=== PATIENT | female | born 1965 | race Caucasian/White ===

== ENCOUNTER 2023-05-23 08:57 | Observation (INO) | payer OTHER, SELFPAY ==
[2023-05-23] VITALS (10 sets, daily range): BP systolic 111–160; BP diastolic 75–97; PULSE 65–83; RESP 13–19; TEMP 36.6–37.1; O2SAT 95–100
--- NOTE | ~2023-05-23 | XR_ITS ---
EXAMINATION: XR chest 1V portable DATE: 05/23/2023 09:55 INDICATION: Left-sided numbness and weakness. TECHNIQUE: A single frontal view of the chest was obtained. COMPARISON: None. FINDINGS: There is no pneumonia, pleural effusion, or pneumothorax. The heart size is normal. IMPRESSION: 1. No acute cardiopulmonary disease. Reviewed, dictated and finalized at location A. RIDGE FEEDER
--- NOTE | ~2023-05-23 | CT_ITS ---
EXAMINATION: CTA brain carotid DATE: 05/23/2023 10:27 INDICATION: Left-sided numbness. TECHNIQUE: Computed tomographic angiography (CTA) of the head was performed without and with 100 mL O mnipaque-350 intravenous contrast. CTA of the neck was performed with intravenous contrast. Automated exposure control and iterative reconstruction technique were employed. The dose-length product was 1 756.83 mGy-cm. Maximum intensity projection and volume rendered 3D-reconstructions were created by henry williamson technologist on a separate workstation. COMPARISON: None. FINDINGS: HEAD CTA: There are scattered areas of low attenuation in the cerebral white matter. There is cystic encephalomalacia in the right temporal parietal deep white matter. There is an old lacunar infarct in the danielle. There is an infarct in the right thalamus. There is no intracranial hemorrhage or abnormal intracranial mass lesion. The ventricles are normal in size. There is mild mucosal thickening in the paranasal sinuses. The orbits are normal. The mastoid air cells are normal. There is extensive denta l disease. The vertebral arteries are codominant. There is no significant stenosis of basilar artery or the posterior cerebral arteries. The posterior communicating arteries are normal. There is no sign ificant stenosis of the intracranial internal carotid arteries or anterior or middle cerebral arterie s. Anterior communicating artery is normal. There is no aneurysm. NECK CTA: There are no pathologically enlarged lymph nodes. There is no significant stenosis of the v ertebral arteries. There is plaque in the proximal internal carotid arteries. There is 48% stenosis o f the proximal right internal carotid artery relative to normal distal artery lumen diameter (NASCET criteria). There is 51% stenosis of the proximal left internal carotid artery relative to normal dist al artery lumen diameter. There is mild cervical spondylosis. IMPRESSION: 1. Age-indeterminate infarct in the right thalamus. 2. Old infarcts in the danielle and right temporal parietal deep white matter. 3. Mild nonspecific cerebral white matter disease, which likely represents chronic small vessel ische julian disease. 4. No aneurysm or significant intracranial arterial stenosis. 5. 48% stenosis of the proximal right internal carotid artery relative to normal distal artery lumen diameter (NASCET criteria). 6. 51% stenosis of the proximal left internal carotid artery relative to normal distal artery lumen d iameter. Reviewed, dictated and finalized at location A. RONMENTAL MARKETER IMPRESSION: 1. Age-indeterminate infarct in the right thalamus. 2. Old infarcts in the danielle and right temporal parietal deep white matter. 3. 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 4. No aneurysm or significant intracranial arterial stenosis. 5. 48% stenosis of the proximal right internal carotid artery relative to lowell l distal artery lumen diameter (NASCET criteria). 6. 51% stenosis of the proximal left internal carotid artery relative to normal distal artery lumen diameter.
--- NOTE | ~2023-05-23 | MR_ITS ---
EXAMINATION: MR brain/brain stem wo/w con DATE: 05/24/2023 12:25 INDICATION: Left-sided numbness. TECHNIQUE: Magnetic resonance imaging (MRI) of the brain and brainstem was performed without and with 12 mL MultiHance intravenous contrast. COMPARISON: Head CT 05/23/2023 FINDINGS: There is an acute infarct in the danielle on the right. There is an old infarct in the danielle. Th ere is old infarct in right thalamus. There is an old infarct in the right temporal parietal deep whi te matter. There is an old infarct in right cerebellum. There are scattered areas of nonspecific incr eased T2-weighted signal intensity in the cerebral white matter. There is no intracranial hemorrhage or abnormal mass lesion. The ventricles are normal in size. The orbits are normal. There is mild muco lior thickening in the paranasal sinuses. The mastoid air cells are normal. IMPRESSION: 1. Acute infarct in the danielle 2. Old infarcts in the danielle, right thalamus, right temporal parietal deep white matter, and right cer ebellum. 3. Mild nonspecific cerebral white matter disease, which likely represents chronic small vessel ische julian disease. Reviewed, dictated and finalized at location A. AND SPIRITS CLERK IMPRESSION: 1. Acute infarct in the danielle 2. Old infarcts in the danielle, right thalamus, right temporal parietal deep white matter, and right cerebellum. 3. Mild nonspecific cerebral white matter disease, which likely represents mesh cutter che small vessel ischemic disease.
--- NOTE | 2023-05-23 09:09 | ECG_ITS ---
Measurements Intervals [place] Rate: 78 P: 77 NC: 188 QRS: 60 QRSD: 154 T: -8 QT: 431 QTc: 492 Interpretive Statements SINUS RHYTHM RIGHT BUNDLE BRANCH BLOCK BASELINE ARTIFACT- III, AVL, AVF, V3-V6 ABNORMAL ECG NO PREVIOUS ECG AVAILABLE FOR COMPARISON Electronically Signed On 05-23-2023 9:22:49 SOCIAL SCIENTIST by Nic Melendez D.O.
[2023-05-23 09:28] LABS: Basophils Absolute Auto 0.1 K/mm3 (0.0-0.1); Eosinophils Absolute Auto 0.2 K/mm3 (0-0.3); Hematocrit 43.4 % (37.0-47.0); Hemoglobin 14.3 g/dL (12.0-15.0); Immature Granulocyte Absolute 0.02 K/mm3 (0.00-0.031); Immature Granulocyte Percent A 0.3 % (0-0.5); Lymphocytes Percent Auto 32.8 % (18.3-44.2); Mean Corpuscular HGB Conc 32.9 g/dl (32-36); Mean Corpuscular Hemoglobin 35.2 pg (26-34); Mean Corpuscular Volume 106.9 fl (80-100); Mean Platelet Volume 10.2 fl (7.4-10.4); Monocytes Absolute Auto 0.4 K/mm3 (0.1-0.6); Monocytes Percent Auto 6.1 % (2.6-8.5); Neutrophils Absolute Auto 3.5 K/mm3 (1.3-6.7); Neutrophils Percent Auto 56.8 % (45.5-73.1); Platelet Count Result 108 k/mm3 (150-375); Red Blood Count 4.06 M/mm3 (4.2-5.4); Red Cell Distribution Width 13.1 % (11.5-14.5); White Blood Count 6.1 K/mm3 (4.5-10.0)
[2023-05-23 09:41] LABS: Alanine Aminotransferase 61 U/L (6-35); Albumin Level 4.2 g/dL (3.5-5.1); Alkaline Phosphatase 90 U/L (38-126); Anion Gap 8 mmol/L (8-16); Aspartate Amino Transferase 92 U/L (14-36); Bilirubin,Total 1.1 mg/dL (0.2-1.3); Blood Urea Nitrogen 17 mg/dL (7-17); Calcium 9.2 mg/dL (8.4-10.2); Carbon Dioxide 26 mmol/L (22-30); Chloride 103 mmol/L (98-107); Estimated CRCL calculation 52 ml/min; Estimated Glomerular Filt Rate > 60; Glucose 182 mg/dL (65-110); Potassium 3.9 mmol/L (3.4-5.0); Sodium 137 mmol/L (137-145)
[2023-05-23 09:42] LABS: Partial Thromboplastin Time 24.4 SECONDS (22.3-36.8); Prothrombin Time 13.3 Seconds (11.1-14.7)
[2023-05-23 09:49] LABS: Troponin I < 0.012 ng/mL (0.000-0.034)
--- NOTE | 2023-05-23 10:36 | ED.GENADULT ---
HPI - General Adult General Chief complaint: Neuro Symptoms/Deficit Stated complaint: numb on left side x 2 days Time Seen by Provider: 05/23/23 09:18 History of Present Illness HPI narrative: Patient is a 58-year-old female who presents ER with numbness left side of her body. She reports that involves her face, her left arm, and her left leg. It does not involve the trunk. No focal weakness. No slurred speech. No previous history of similar symptoms. She reports she did have a fall 2 days prior where she hurt her low back but denies any injury to her neck or head. No neck stiffness at this time. No alleviating factors. Patient has cardiac history and is on Plavix. Related Data Home Medications Medication Instructions Recorded Confirmed albuterol sulfate 90 mcg/actuation 90 mcg inhalation PRN PRN asthma 05/23/23 05/23/23 aerosol inhaler amlodipine 5 mg tablet (Norvasc) 5 mg PO DAILY 05/23/23 05/23/23 atorvastatin 40 mg tablet 40 mg PO DAILY 05/23/23 05/23/23 citalopram 20 mg tablet 20 mg PO DAILY 05/23/23 05/23/23 clopidogrel 75 mg tablet 75 mg PO DAILY 05/23/23 05/23/23 gabapentin 300 mg capsule 900 mg PO BID 05/23/23 05/23/23 glipizide 10 mg tablet 10 mg PO BID 05/23/23 05/23/23 meloxicam 7.5 mg tablet 7.5 mg PO DAILY 05/23/23 05/23/23 metoprolol succinate 50 mg 50 mg PO DAILY 05/23/23 05/23/23 tablet,extended release 24 hr Allergies Allergy/AdvReac Type Severity Reaction Status Date / Time Sulfa (Sulfonamide Allergy Rash Verified 05/23/23 09:16 Antibiotics) Review of Systems Review of Systems: All systems reviewed & are unremarkable except as noted in HPI and below Constitutional: Constitutional: Denies chills, Denies fatigue and Denies fever(s) ENT: Reports system reviewed and no additional complaints, except as documented Cardiovascular: Cardiovascular: Reports no additional cardiovascular complaints Respiratory: Respiratory: Reports no additional respiratory complaints Musculoskeletal: Musculoskeletal: Reports no additional musculoskeletal complaints Neurologic: Denies syncope, Denies headache(s), Denies focal weakness and Reports numbness PMF Past Medical History Medical History (Updated 05/23/23 @ 18:14 by Brian Shafer MD) COPD (chronic obstructive pulmonary disease) Coronary artery disease Diabetes Hyperlipidemia Hypertension Neuropathy Surgical History Surgical History (Updated 05/23/23 @ 10:39 by Brian Shafer MD) History of percutaneous coronary intervention Family History Family History (Updated 05/23/23 @ 15:23 by Reina Campbell PA-C) Mother Acute myocardial infarction Social History Social History Smoking packs per day: 1.5 Smoking cigarettes per day: 30.0 Years smoked: 50 Smoking pack-years: 75.00 Smoking status: Current every day smoker Tobacco type: cigarettes Second hand tobacco smoke exposure: Yes Alcohol intake: current Drinks per week: 10 Substance use: former Last use: 1999 Lack of Transportation: No Lack of Food: Never True Current Housing: I Have Housing Concerned About Future Housing: No Difficulty Paying Gas/Electric Bills: YES Difficulty Paying for Meds: No Currently Unemployed: No Education: High School Diploma/GED Difficulty w/ Childcare or Family Care: No Spiritual care concerns: No Exam Narrative: GENERAL: Well-appearing, well-nourished, and in no acute distress. HEAD: Normocephalic, atraumatic. EYES: PERRL and EOMI. ENT: Mucous membranes moist. CHEST: Clear to auscultation. No respiratory distress. HEART: Regular rate and rhythm. Normal peripheral pulses. ABDOMEN: Soft, nontender, nondistended. EXTREMITIES: Normal range of motion. No edema. SKIN: Warm, dry, no rash. NEURO: Decreased sharp touch most notably in the left upper extremity however there is slight variation in left face. No difference in the lower
--- NOTE | 2023-05-23 13:45 | PM.IMHP ---
H&P: HPI History of Present Illness Date/Time: 05/23/23 13:45 Chief Complaint: Left-sided numbness Narrative: Patient is a 58-year-old female who presented emergency room for left facial, arm and leg numbness that started 2 days ago. She states this numbness is more abnormal sensation that she notices with touch and hot and cold. This has never happened to her before and she has no pain. She denies vision loss, speech abnormalities, weakness, chest pain or shortness of breath. She has a little bit of dizziness and she has noticed that she is dropping things from her left hand. She denies any significant headaches. She does have a history of neuropathy in both her hands and feet. She has a history of an [place] at 48 with cardiac stents but no other history of stroke that she knows of. She says she no longer has diabetes and she is off her medications. She admits to drinking 2 barbara bombs a day but denies drug use Review of Systems Review of Systems: All systems reviewed & are unremarkable except as noted in HPI and below PMFSH Past Medical History Medical History (Updated 05/23/23 @ 15:28 by Reina Campbell PA-C) COPD (chronic obstructive pulmonary disease) Coronary artery disease Diabetes Hyperlipidemia Hypertension Neuropathy Surgical History Surgical History (Updated 05/23/23 @ 10:39 by Brian Shafer MD) History of percutaneous coronary intervention Family History Family History (Updated 05/23/23 @ 15:23 by Reina Campbell PA-C) Mother Acute myocardial infarction Comments Social history-she drinks 2 shots a day, smokes 1.5 packs per day, no drugs. Lives at home alone Meds Home Medications and Allergies Allergies Allergy/AdvReac Type Severity Reaction Status Date / Time Sulfa (Sulfonamide Allergy Rash Verified 05/23/23 09:16 Antibiotics) Vital Signs Vital Signs - 24 hr 05/23/23 09:10 05/23/23 09:14 05/23/23 09:14 Temperature 97.8 F Pulse Rate 76 76 75 Respiratory Rate 18 14 Blood Pressure 155/97 H 155/97 H Pulse Oximetry 99 99 Oxygen Delivery Room Air 05/23/23 10:32 05/23/23 11:22 05/23/23 12:47 Temperature Pulse Rate 74 73 79 Respiratory Rate 13 18 19 Blood Pressure 154/82 H 125/79 111/82 Pulse Oximetry 96 99 96 Oxygen Delivery Exam Narrative: General:Well developed well nourished patient HEENT: Normocephalic, atraumatic, PERRL, Sclerae anicteric, oral mucosa moist. Neck: Supple Resp: Decreased breath sounds throughout with slight expiratory wheezing bilateral Heart: RRR with no murmurs Abd: Soft, nontender. No pain to palpation. Positive bowel sounds Skin: Warm and dry Extremities: No swelling, erythema or pain to palpation Neuro: Alert and Oriented x4 . CN 2-12 intact. She endorses abnormal sensation of L arm, face and leg but on sharp and dull, she has abnormalities bilaterally. no abnormal speech H&P: Results Labs Labs: Short CBC 05/23/23 Range/Units 09:24 WBC 6.1 (4.5-10.0) K/mm3 Hgb 14.3 (12.0-15.0) g/dL Hct 43.4 (37.0-47.0) % Plt Count 108 L (150-375) k/mm3 BMP 05/23/23 09:24 Sodium 137 Potassium 3.9 Chloride 103 Carbon Dioxide 26 BUN 17 Creatinine 0.80 Glucose 182 H Calcium 9.2 Cardiac Enzymes 05/23/23 Range/Units 09:24 Troponin I < 0.012 (0.000-0.034) ng/mL Liver Function 05/23/23 Range/Units 09:24 Total Bilirubin 1.1 (0.2-1.3) mg/dL AST 92 H (14-36) U/L ALT 61 H (6-35) U/L Alkaline Phosphatase 90 (38-126) U/L Albumin 4.2 (3.5-5.1) g/dL Assessment and Plan Assessment and plan (1) Abnormal sensation of upper extremity: Code(s): R20.9 - Unspecified disturbances of skin sensation Status: Acute Assessment and Plan: CT with R thalamic abnormality which is age indeterminate which matches her symptomatology -outside window for tPA, no EMT needed as no LVO on CTA -Obtain MRI brain -CTA without significant stenos
[2023-05-23] MEDS: NICOTINE (*PBKC) 14 MG PATCH 1 PATCH TRANSDERM (14:00)
--- NOTE | 2023-05-23 15:28 | ADMGEN ---
This patient, Yen Ruvalcaba, was admitted to [facility] Surg Room 321-01. Patient/family oriented to hospital policies and general routines including ID bracelet, bed and alarms, visiting hours, pain management, procedures, bathroom and other care routines, personal items, smoking policy, room service/diet, and visiting hours. Information on how to activate the Rapid Response Team has been discussed. Patient/Family are encouraged to report perceived risks to care and to ask questions if they do not understand what they are told or what they should do.
[2023-05-23] MEDS: GABAPENTIN 300 MG CAPSULE PO (18:03)
[2023-05-23 18:44] LABS: Amphetamine Screen Urine Negative (Negative); Barbiturate Screen Urine Negative (Negative); Benzodiazepines Screen Urine Negative (Negative); Cannabinoid Screen Urine Negative (Negative); Cocaine Screen Urine Negative (Negative); Methadone Screen Urine Negative (Negative); Opiate Screen Urine Negative (Negative); Phencyclidine Screen Urine Negative (Negative)
[2023-05-24] VITALS (9 sets, daily range): BP systolic 139–160; BP diastolic 77–97; PULSE 62–79; RESP 14–18; TEMP 36.3–36.9; O2SAT 90–97
--- NOTE | 2023-05-24 07:41 | PM.IMPN ---
Progress Note: A&P Assessment and Plan (1) Abnormal sensation of upper extremity: Code(s): R20.9 - Unspecified disturbances of skin sensation Status: Acute Assessment and Plan: CT with R thalamic abnormality which is age indeterminate which matches her symptomatology -outside window for tPA, no EMT needed as no LVO on CTA -Obtain MRI brain -CTA without significant stenosis of the carotid arteries -Will order echo with bubble, lipid panel, A1c -Triglycerides are high. Add Fish oil daily for moderate hypertriglyceridemia. -Neurology consult -tele -needs to quit smoking -pt on aspirin 81mg and statin therapy at home-continue with that regimen (will await home medications to be verified) 05/24: MRI shows acute infarct in the danielle and old infarct in the right thalamus, right temporal parietal deep white matter, and right cerebellum. There is also nonspecific cerebral white matter disease which likely represents chronic small vessel ischemic disease. Neurology recommends continue with ASA and plavix for the next 6 weeks as well as continue atorvastatin 40 mg daily. She will need to follow with a neurologist for the next 6 months. She also needs close follow up with her PCP for blood pressure control and monitoring of lipids. (2) Stroke-like symptoms: Code(s): R29.90 - Unspecified symptoms and signs involving the nervous system Status: Acute Assessment and Plan: As above (3) History of CVA (cerebrovascular accident): Code(s): Z86.73 - Personal history of transient ischemic attack (TIA), and cerebral infarction without residual deficits Status: Acute Assessment and Plan: old infarcts in the danielle and right temporal -recommend outpt cardiac tech due to locations as cardioembolic source is suspected -CT also shows white matter disease--will work on SV risk factors such as HTN, DM, lipids etc (4) Elevated LFTs: Code(s): R79.89 - Other specified abnormal findings of blood chemistry Status: Acute Assessment and Plan: Noted on labs -check hepatitis panel in the AM -Likely due to ETOH use -Monitor (5) Abnormal glucose: Code(s): R73.09 - Other abnormal glucose Status: Acute Assessment and Plan: Check A1c in the AM as pt has a hx of DM but is no longer on medication 05/24: A1c 6.7%. Recommend diet and lifestyle changes. (6) Neuropathy: Code(s): G62.9 - Polyneuropathy, unspecified Status: Acute Assessment and Plan: Pt takes gabapentin for this -Will continue when home medications are verified (7) COPD (chronic obstructive pulmonary disease): Code(s): J44.9 - Chronic obstructive pulmonary disease, unspecified Status: Acute Assessment and Plan: Decreased breath sounds -no signs of exacerbation -f/u outpt and quit smoking (8) Alcohol use: Code(s): Z78.9 - Other specified health status Status: Acute Assessment and Plan: Takes 2 shots of day -No signs of withdraw -CIWA (9) HTN (hypertension), benign: Code(s): I10 - Essential (primary) hypertension Status: Acute Assessment and Plan: last bp 130/83 -will allow permissive htn at this time Plan dvt ppx-scd until MRI is back Subjective Date/time seen: 05/24/23 07:41 Interval history: Patient is a 58-year-old female who presented emergency room for left facial, arm and leg numbness that started 2 days ago.? She states this numbness is more abnormal sensation that she notices with touch and hot and cold.? This has never happened to her before and she has no pain.? She denies vision loss, speech abnormalities, weakness, chest pain or shortness of breath.? She has a little bit of dizziness and she has noticed that she is dropping things from her left hand.? She denies any significant headaches.? She does have a history of neuropathy in both her hands and feet.? She
[2023-05-24 08:22] LABS: Hemoglobin A1C 6.7 % (<5.7)
[2023-05-24 08:23] LABS: Alanine Aminotransferase 59 U/L (6-35); Albumin Level 3.9 g/dL (3.5-5.1); Alkaline Phosphatase 89 U/L (38-126); Anion Gap 9 mmol/L (8-16); Aspartate Amino Transferase 80 U/L (14-36); Bilirubin,Total 0.9 mg/dL (0.2-1.3); Blood Urea Nitrogen 12 mg/dL (7-17); Carbon Dioxide 25 mmol/L (22-30); Chloride 105 mmol/L (98-107); Cholesterol 134 mg/dL (0-200); Estimated CRCL calculation 68 ml/min; Estimated Glomerular Filt Rate > 60; Glucose 182 mg/dL (65-110); HDL Direct 55 mg/dL; Potassium 3.2 mmol/L (3.4-5.0); Sodium 139 mmol/L (137-145); Triglycerides 228 mg/dL (<150)
[2023-05-24 08:34] LABS: LDL Cholesterol Direct 54 mg/dL
[2023-05-24] MEDS: ATORVASTATIN 40 MG TABLET PO (08:45)
[2023-05-24] MEDS: MELOXICAM 7.5 MG TABLET PO (08:46)
[2023-05-24] MEDS: GABAPENTIN 300 MG CAPSULE PO ×3 (08:46→17:37)
[2023-05-24] MEDS: ASPIRIN 81 MG ENTERIC TABLET PO (08:46)
[2023-05-24] MEDS: METOPROLOL SUCCINATE EXT REL 50 MG TABCR PO (08:46)
[2023-05-24] MEDS: CITALOPRAM HYDROBROMIDE 20 MG TABLET PO (08:46)
[2023-05-24] MEDS: NICOTINE (*PBKC) 14 MG PATCH 1 PATCH TRANSDERM (08:51)
[2023-05-24 09:01] LABS: Hepatitis B Surface Antigen Negative (Negative)
[2023-05-24 09:07] LABS: HAV RESULT Negative (Negative); Hepatitis B Core IgM Result Negative (Negative)
[2023-05-24 09:18] LABS: Hepatitis C Virus Antibody Negative (Negative)
--- NOTE | 2023-05-24 10:18 | WPDNEURCNPN ---
Assessment and Plan Assessment and plan (1) HTN (hypertension), benign: Code(s): I10 - Essential (primary) hypertension Status: Acute Plan 1. Bilateral stenosis of the proximal right internal carotid arteries in the range of 48% to 51% obviously with no need for the surgical intervention 2. Bihemispheric stroke with involvement of the right thalamus and old infarct in the danielle and right temporoparietal deep white matter as well. Recommend ongoing treatment with aspirin and Plavix for the next 6 weeks in addition to the continuation of atorvastatin 40mg daily and regular follow-up for the ongoing control of the blood pressure and while in the hospital we can get the surface echocardiogram done. Should be followed by the neurologist under 6 months based along with the follow-up with the [facility] superintendent Consult date: 05/24/23 HPI: Yen Ruvalcaba is a 58 year old female Admitted to the hospital through the emergency room for the complaints of numbness of the left side of her body, particularly involving her face, left upper extremity and left lower extremity without associated speech difficulties and also with no history of similar symptomatology in the past she also gave the history of fall 2 days prior to this particular incident when she hurt her lower back but gave no history of trauma to her head. Her medications at the time of admission included amlodipine 5mg daily, atorvastatin 40mg daily, citalopram 20mg daily, clopidogrel 75mg daily, gabapentin 300mg each 3 tablets b.i.d., glipizide 10mg twice a day, meloxicam 7.5mg daily, and metoprolol 50mg daily. She is reportedly allergic to sulfa. She does have ongoing history of 1. COPD 2. Coronary artery disease 3. Diabetes mellitus 4. Hyperlipidemia 5. Hypertension and 6. Neuropathy she is currently everyday smoker with history of smoking a pack years 75 and she currently takes 10 drinks per week. Initial evaluation in the emergency room revealed her to have no focal neurological deficit, vital signs were with blood pressure 155/97, routine lab studies revealed her platelet count of 108, and a CTA of the brain documented infarct in the right thalamus, old infarct in the danielle and right temporal parietal deep white matter, nonspecific white matter disease, 48% stenosis of proximal right internal carotid artery and 51% stenosis of proximal left internal carotid artery, EKG was normal Review of Systems Review of Systems: All systems reviewed & are unremarkable except as noted in HPI and below PMFSH Past Medical History Medical History (Updated 05/23/23 @ 18:14 by Brian Shafer MD) COPD (chronic obstructive pulmonary disease) Coronary artery disease Diabetes Hyperlipidemia Hypertension Neuropathy Surgical History Surgical History (Updated 05/23/23 @ 10:39 by Brian Shafer MD) History of percutaneous coronary intervention Family History Family History (Updated 05/23/23 @ 15:23 by Reina Campbell PA-C) Mother Acute myocardial infarction Social History Social History Smoking packs per day: 1.5 Smoking cigarettes per day: 30.0 Years smoked: 50 Smoking pack-years: 75.00 Smoking status: Current every day smoker Tobacco type: cigarettes Second hand tobacco smoke exposure: Yes Alcohol intake: current Drinks per week: 10 Substance use: former Last use: 1999 Lack of Transportation: No Lack of Food: Never True Current Housing: I Have Housing Concerned About Future Housing: No Difficulty Paying Gas/Electric Bills: YES Difficulty Paying for Meds: No Currently Unemployed: No Education: High School Diploma/GED Difficulty w/ Childcare or Family Care: No Spiritual care concerns: No Meds Home Medications and Allergies Home Medications Medication Instructions Recorded Confirmed Type albuterol sulfate 90 mcg/actuation 90 mcg inhalation PRN PRN asthma 05/23/23
[2023-05-24] MEDS: ALPRAZolam (*CRX) 0.5 MG TABLET PO (11:18)
[2023-05-24] MEDS: POTASSIUM CHLORIDE 20 MEQ ER TABLET 40 MEQ PO (17:37)
[2023-05-25] VITALS (7 sets, daily range): BP systolic 138–151; BP diastolic 79–80; PULSE 60–84; RESP 16; TEMP 36.3–36.7; O2SAT 94–98
--- NOTE | 2023-05-25 | ECHO_ITS ---
Patient Info Name: Yen Ruvalcaba Age: 58 years : 1965 Gender: Female Ht: 62 in Wt: 134 lbs BSA: 1.64 m2 HR: 77 bpm BP: 138 / 80 mmHg Technical Quality: Fair Exam Date: 05/25/2023 10:24 AM Exam Location: Echo Lab Exam Room: [facility] Patient Status: Inpatient Admit Date: 05/23/2023 Staff Ordering Physician: Reina Campbell PA-C [employer] Technician: Tomasa Eden RDCS Attending Provider: Brice Rubin MD Referring Physician: Adrian HALLMAN; Exam Type: CA echo doppler w bubble study Study Info Indications - stroke Complete two-dimensional, color flow and Doppler transthoracic echocardiogram is performed with agitated saline. Contrast/Agitated Saline Contrast/Ag. Saline: Agitated Saline Amount: 20.00 ml Administered By: Tyler Silva RN Existing IV Access: Yes IV Access Condition: patent with no signs of infiltration Summary 1. Left ventricular chamber dimension is normal. 2. Left ventricular systolic function is normal, estimated at 60-65%. 3. The left ventricular diastolic function is grade I diastolic dysfunction. 4. E/e' 13 is mildly elevated. 5. There is mild aortic valve sclerosis. 6. The mitral valve has mildly calcified annulus. 7. There is trace mitral valve regurgitation. 8. There is trace tricuspid valve regurgitation. 9. No pulmonary hypertension, estimated pulmonary arterial systolic pressure is 30 mmHg. Left Ventricle E/e' 13 is mildly elevated. Left ventricular chamber dimension is normal. Left ventricular systolic function is normal, estimated at 60-65%. The left ventricular diastolic function is grade I diastolic dysfunction. Right Ventricle Right ventricular systolic function is normal and with normal TAPSE 2.2 cm. Right ventricular chamber dimension is normal. Left Atria Left atrial chamber dimension is normal. Right Atria Right atrial chamber dimension is normal. Atrial Septum Agitated saline injection with and without valsalva maneuver opacified right side cardiac chambers without shunt to left side cardiac chambers. Intact interatrial septum visualized by 2D and agitated saline imaging. Aortic Valve The aortic valve is trileaflet. There is mild aortic valve sclerosis. There is no aortic valve stenosis. There is no aortic valve regurgitation. Mitral Valve The mitral valve has mildly calcified annulus. There is no mitral valve stenosis. There is trace mitral valve regurgitation. Tricuspid Valve There is trace tricuspid valve regurgitation. No pulmonary hypertension, estimated pulmonary arterial systolic pressure is 30 mmHg. Pericardium/Pleural There is no pericardial effusion. Inferior Vena Cava Normal inferior vena cava with >50% collapse upon inspiration consistent with normal right atrial pressure, 5 mmHg. Aorta The aortic root size at the sinus of Valsalva is normal. Left Ventricular Outflow Tract Name Value Normal LVOT 2D LVOT Diameter 2.0 cm LVOT Doppler LVOT Peak Gradient 7 mmHg LVOT Mean Gradient 4 mmHg LVOT VTI 24 cm LVOT VTI/AV VTI Ratio 0.9
[2023-05-25 07:22] LABS: Basophils Absolute Auto 0.1 K/mm3 (0.0-0.1); Basophils Percent Auto 0.9 % (0.2-1.2); Eosinophils Absolute Auto 0.2 K/mm3 (0-0.3); Eosinophils Percent Auto 3.5 % (0-4.4); Hematocrit 44.1 % (37.0-47.0); Hemoglobin 14.3 g/dL (12.0-15.0); Immature Granulocyte Absolute 0.02 K/mm3 (0.00-0.031); Immature Granulocyte Percent A 0.4 % (0-0.5); Lymphocytes Absolute Auto 2.17 K/mm3 (0.9-3.2); Lymphocytes Percent Auto 38.1 % (18.3-44.2); Mean Corpuscular HGB Conc 32.4 g/dl (32-36); Mean Corpuscular Hemoglobin 34.9 pg (26-34); Mean Corpuscular Volume 107.6 fl (80-100); Mean Platelet Volume 9.9 fl (7.4-10.4); Monocytes Absolute Auto 0.3 K/mm3 (0.1-0.6); Monocytes Percent Auto 5.8 % (2.6-8.5); Neutrophils Absolute Auto 2.9 K/mm3 (1.3-6.7); Neutrophils Percent Auto 51.3 % (45.5-73.1); Platelet Count Result 106 k/mm3 (150-375); Red Cell Distribution Width 13.1 % (11.5-14.5); White Blood Count 5.7 K/mm3 (4.5-10.0)
[2023-05-25 07:28] LABS: Alanine Aminotransferase 59 U/L (6-35); Albumin Level 3.8 g/dL (3.5-5.1); Alkaline Phosphatase 81 U/L (38-126); Anion Gap 4 mmol/L (8-16); Aspartate Amino Transferase 78 U/L (14-36); Bilirubin,Total 0.8 mg/dL (0.2-1.3); Blood Urea Nitrogen 15 mg/dL (7-17); Calcium 9.1 mg/dL (8.4-10.2); Carbon Dioxide 27 mmol/L (22-30); Chloride 108 mmol/L (98-107); Estimated CRCL calculation 52 ml/min; Estimated Glomerular Filt Rate > 60; Glucose 158 mg/dL (65-110); Potassium 4.3 mmol/L (3.4-5.0); Sodium 139 mmol/L (137-145)
--- NOTE | 2023-05-25 08:49 | PM.IMPN ---
Progress Note: A&P Assessment and Plan (1) Abnormal sensation of upper extremity: Code(s): R20.9 - Unspecified disturbances of skin sensation Status: Acute Assessment and Plan: CT with R thalamic abnormality which is age indeterminate which matches her symptomatology -outside window for tPA, no EMT needed as no LVO on CTA -Obtain MRI brain -CTA without significant stenosis of the carotid arteries -Will order echo with bubble, lipid panel, A1c -Triglycerides are high. Add Fish oil daily for moderate hypertriglyceridemia. -Neurology consult -tele -needs to quit smoking -pt on aspirin 81mg and statin therapy at home-continue with that regimen (will await home medications to be verified) 05/24: MRI shows acute infarct in the danielle and old infarct in the right thalamus, right temporal parietal deep white matter, and right cerebellum. There is also nonspecific cerebral white matter disease which likely represents chronic small vessel ischemic disease. Neurology recommends continue with ASA and plavix for the next 6 weeks as well as continue atorvastatin 40 mg daily. She will need to follow with a neurologist for the next 6 months. She also needs close follow up with her PCP for blood pressure control and monitoring of lipids. (2) Stroke-like symptoms: Code(s): R29.90 - Unspecified symptoms and signs involving the nervous system Status: Acute Assessment and Plan: As above (3) History of CVA (cerebrovascular accident): Code(s): Z86.73 - Personal history of transient ischemic attack (TIA), and cerebral infarction without residual deficits Status: Acute Assessment and Plan: old infarcts in the danielle and right temporal -recommend outpt bus driver/monitor due to locations as cardioembolic source is suspected -CT also shows white matter disease--will work on SV risk factors such as HTN, DM, lipids etc (4) Elevated LFTs: Code(s): R79.89 - Other specified abnormal findings of blood chemistry Status: Acute Assessment and Plan: Noted on labs -check hepatitis panel in the AM -Likely due to ETOH use -Monitor (5) Abnormal glucose: Code(s): R73.09 - Other abnormal glucose Status: Acute Assessment and Plan: Check A1c in the AM as pt has a hx of DM but is no longer on medication 05/24: A1c 6.7%. Recommend diet and lifestyle changes. (6) Neuropathy: Code(s): G62.9 - Polyneuropathy, unspecified Status: Acute Assessment and Plan: Pt takes gabapentin for this -Will continue when home medications are verified (7) COPD (chronic obstructive pulmonary disease): Code(s): J44.9 - Chronic obstructive pulmonary disease, unspecified Status: Acute Assessment and Plan: Decreased breath sounds -no signs of exacerbation -f/u outpt and quit smoking (8) Alcohol use: Code(s): Z78.9 - Other specified health status Status: Acute Assessment and Plan: Takes 2 shots of day -No signs of withdraw -CIWA (9) HTN (hypertension), benign: Code(s): I10 - Essential (primary) hypertension Status: Acute Assessment and Plan: last bp 130/83 -will allow permissive htn at this time 05/25: Restarting amlodipine 5 mg today. Plan dvt ppx-scd until MRI is back Subjective Date/time seen: 05/25/23 08:49 Interval history: Patient is a 58-year-old female who presented emergency room for left facial, arm and leg numbness that started 2 days ago.? She states this numbness is more abnormal sensation that she notices with touch and hot and cold.? This has never happened to her before and she has no pain.? She denies vision loss, speech abnormalities, weakness, chest pain or shortness of breath.? She has a little bit of dizziness and she has noticed that she is dropping things from her left hand.? She denies any significant headaches.? She does have a history of n
[2023-05-25] MEDS: ASPIRIN 81 MG ENTERIC TABLET PO (09:01)
[2023-05-25] MEDS: CITALOPRAM HYDROBROMIDE 20 MG TABLET PO (09:01)
[2023-05-25] MEDS: GABAPENTIN 300 MG CAPSULE PO ×2 (09:01→12:54)
[2023-05-25] MEDS: ATORVASTATIN 40 MG TABLET PO (09:01)
[2023-05-25] MEDS: OMEGA 3 POLYUNSAT FATTY ACIDS 1 GM CAP PO (09:01)
[2023-05-25] MEDS: METOPROLOL SUCCINATE EXT REL 50 MG TABCR PO (09:01)
[2023-05-25] MEDS: NICOTINE (*PBKC) 14 MG PATCH 1 PATCH TRANSDERM (09:01)
[2023-05-25] MEDS: MELOXICAM 7.5 MG TABLET PO (09:01)
[2023-05-25] MEDS: amLODIPine BESYLATE 5 MG TABLET PO (09:08)
--- NOTE | 2023-05-25 15:24 | PM.DS ---
DS: Admitting Diagnosis Discharge Date 05/25/23 Admitting Diagnosis left sided numbness DS: Discharge Diagnosis Discharge Diagnosis (1) Abnormal sensation of upper extremity: Code(s): R20.9 - Unspecified disturbances of skin sensation Status: Acute Assessment and Plan: CT with R thalamic abnormality which is age indeterminate which matches her symptomatology -outside window for tPA, no EMT needed as no LVO on CTA -Obtain MRI brain -CTA without significant stenosis of the carotid arteries -Will order echo with bubble, lipid panel, A1c -Triglycerides are high. Add Fish oil daily for moderate hypertriglyceridemia. -Neurology consult -tele -needs to quit smoking -pt on aspirin 81mg and statin therapy at home-continue with that regimen (will await home medications to be verified) 05/24: MRI shows acute infarct in the danielle and old infarct in the right thalamus, right temporal parietal deep white matter, and right cerebellum. There is also nonspecific cerebral white matter disease which likely represents chronic small vessel ischemic disease. Neurology recommends continue with ASA and plavix for the next 6 weeks as well as continue atorvastatin 40 mg daily. She will need to follow with a neurologist for the next 6 months. She also needs close follow up with her PCP for blood pressure control and monitoring of lipids. (2) Stroke-like symptoms: Code(s): R29.90 - Unspecified symptoms and signs involving the nervous system Status: Acute Assessment and Plan: As above (3) History of CVA (cerebrovascular accident): Code(s): Z86.73 - Personal history of transient ischemic attack (TIA), and cerebral infarction without residual deficits Status: Acute Assessment and Plan: old infarcts in the danielle and right temporal -recommend outpt metal filer due to locations as cardioembolic source is suspected -CT also shows white matter disease--will work on SV risk factors such as HTN, DM, lipids etc (4) Elevated LFTs: Code(s): R79.89 - Other specified abnormal findings of blood chemistry Status: Acute Assessment and Plan: Noted on labs -check hepatitis panel in the AM -Likely due to ETOH use -Monitor (5) Abnormal glucose: Code(s): R73.09 - Other abnormal glucose Status: Acute Assessment and Plan: Check A1c in the AM as pt has a hx of DM but is no longer on medication 05/24: A1c 6.7%. Recommend diet and lifestyle changes. (6) Neuropathy: Code(s): G62.9 - Polyneuropathy, unspecified Status: Acute Assessment and Plan: Pt takes gabapentin for this -Will continue when home medications are verified (7) COPD (chronic obstructive pulmonary disease): Code(s): J44.9 - Chronic obstructive pulmonary disease, unspecified Status: Acute Assessment and Plan: Decreased breath sounds -no signs of exacerbation -f/u outpt and quit smoking (8) Alcohol use: Code(s): Z78.9 - Other specified health status Status: Acute Assessment and Plan: Takes 2 shots of day -No signs of withdraw -CIWA (9) HTN (hypertension), benign: Code(s): I10 - Essential (primary) hypertension Status: Acute Assessment and Plan: last bp 130/83 -will allow permissive htn at this time 05/25: Restarting amlodipine 5 mg today. Plan dvt ppx-scd until MRI is back DS: Summary Hospital Course Hospital Course: Patient is a 58-year-old female who presented emergency room for left facial, arm and leg numbness that started 2 days ago.? She states this numbness is more abnormal sensation that she notices with touch and hot and cold.? This has never happened to her before and she has no pain.? She denies vision loss, speech abnormalities, weakness, chest pain or shortness of breath.? She has a little bit of dizziness and she has noticed that she is dropping things from her
== END 2023-05-25 16:30 | disposition home or self-care (01) ==
LOC: ANHED 09:42 → ANH3MEDSUR 14:39
PROVIDERS: Nurse Practitioner Acute Care; Physician Assistant; Admitting Provider Internal Medicine; Emergency Provider Emergency Medicine; PCP Internal Medicine; Visit Provider Internal Medicine
DX: I63.9 Cerebral infarction, unspecified (principal); R79.89 Other specified abnormal findings of blood chemistry; R73.09 Other abnormal glucose; G62.9 Polyneuropathy, unspecified; J44.9 Chronic obstructive pulmonary disease, unspecified; I11.9 Hypertensive heart disease without heart failure; I25.10 Atherosclerotic heart disease of native coronary artery without angina pectoris; Z98.61 Coronary angioplasty status; R90.82 White matter disease, unspecified; I35.8 Other nonrheumatic aortic valve disorders; I34.81 Nonrheumatic mitral (valve) annulus calcification; R94.31 Abnormal electrocardiogram [ECG] [EKG]; F17.210 Nicotine dependence, cigarettes, uncomplicated; F10.90 Alcohol use, unspecified, uncomplicated; F19.11 Other psychoactive substance abuse, in remission; Z79.51 Long term (current) use of inhaled steroids; Z79.02 Long term (current) use of antithrombotics/antiplatelets; Z79.84 Long term (current) use of oral hypoglycemic drugs; Z79.899 Other long term (current) drug therapy; Z86.73 Personal history of transient ischemic attack (TIA), and cerebral infarction without residual deficits; Z82.49 Family history of ischemic heart disease and other diseases of the circulatory system
CPT/HCPCS: 36415; 70496; 70498; 70553; 71045; 80053; 80061; 80074; 80307; 83036; 84484; 85025; 85610; 85730; 93005; 93306; 96375; 99285; A9270; A9577; G0378; G0379; Q9967